=== PATIENT | male | born 1950 | race African-American/Black ===

== ENCOUNTER 2024-12-28 17:01 | Inpatient (IN) | payer OTHER, MEDICARE, BC ==
[~2024-12-28] VITALS: Ht 177.8 cm; Wt 117.8 kg
--- NOTE | 2024-12-28 18:29 | ED.PDOC ---
History of Present Illness HPI Comments Patient is a 74 y/o male with past medical history of HTN, T2DM, prostatomegaly came to the ED with the c/c of right groin pain. Patient reports that about 3 weeks ago he started to feel right groin pain above his right tesitcle which has been getting worse since then. recently he reports of pain radiating up from his groin into the suprapubic region. patient denies constipation or obstipation, nausea or vomiting. fever/chills. He does not report of any diarrhoea or blood in stools , no dysurial. Chief Complaint: Testicle Pain Time Seen by MD: 17:37 Reviewed Notes: Nurses Notes, Medications, Allergies Allergies: Coded Allergies: NO KNOWN ALLERGIES (Unverified , 12/28/24) Information Source: Patient Mode of Arrival: Ambulatory Past Medical History PAST MEDICAL HISTORY: DM, HTN Past Medical History (Other): prostatomegaly Surgical History: Denies all surgeries Family History Family History: Reviewed,noncontributory to illness Social History Smoker: Non-Smoker Alcohol: Denies ETOH Use Drugs: Denies Drug Use Lives In: Home Constitutional: denies: chills, diaphoresis, fatigue, fever, malaise, sweats, weakness, others EENTM: denies: blurred vision, double vision, ear bleeding, ear discharge, ear drainage, ear pain, ear ringing, eye pain, eye redness, hearing loss, mouth pain, mouth swelling, nasal discharge, nose bleeding, nose congestion, nose pain, photophobia, tearing, throat pain, throat swelling, voice changes, others Respiratory: denies: cough, hemoptysis, orthopnea, SOB at rest, shortness of breath, SOB with excertion, stridor, wheezing, others Cardiovascular: denies: chest pain, dizzy spells, diaphoresis, Dyspnea on exertion, edema, irregular heart beat, left arm pain, lightheadedness, palpitations, PND, syncope, others Gastrointestinal: reports: abdominal pain Genitourinary: reports: testicle pain, testicle swelling Neurological: denies: dizziness, fainting, headache, left sided numbness, left sided weakness, numbness, paresthesia, pre-existing deficit, right sided numbness, right sided weakness, seizure, speech problems, tingling, tremors, weakness, others Musculoskeletal: denies: back pain, gout, joint pain, joint swelling, muscle pain, muscle stiffness, neck pain, others Integumetry: denies: bruises, change in color, change in hair/nails, dryness, laceration, lesions, lumps, rash, wounds, others Allergic/Immunocompromised: denies: Difficulty Healing, Frequent Infections, Hives, Itching, others Hematologic/Lymphatic: denies: anemia, blood clots, easy bleeding, easy bruising, swollen glands, others Endocrine: denies: excessive hunger, excessive sweating, excessive thirst, excessive urination, flushing, intolerance to cold, intolerance to heat, unexplained weight gain, unexplained weight loss, others Psychiatric: denies: anxiety, bipolar disorder, depression, hopeless, panic disorder, schizophrenia, sleepless, suicidal, others Physical Exam General Appearance: No Apparent Distress, Normal HEENT: Normal ENT Inspection, Pharynx Normal, TMs Normal Neck: Full Range of Motion, Non-Tender, Normal, Normal Inspection Respiratory: Chest Non-Tender, Lungs Clear, No Accessory Muscle Use, No Respiratory Distress, Normal Breath Sounds Cardiovascular: No Edema, No JVD, No Murmur, No Gallop, Normal Peripheral Pulses, Regular Rate/Rhythm Breast Exam: Deferred Gastrointestinal: No Organomegaly, Non Tender, No Pulsatile Mass, Normal Bowel Sounds, Soft Genitalia: Testicle (swelling coming out of the deep inguinal ring on coughing on the righ side ) Pelvic: Deferred Rectal: Deferred Extremities: No calf tenderness, Normal capillary refill, Normal inspection, Normal range of motion, Non-tender, No pedal edema Neurologic: Alert, 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 Was a procedure done?: No Differential Dx Considerations may include: Inguinal hernia, hydrocoele, testicular swelling X-Ray, Labs, Meds, VS Vital Signs Date Time Temp Pulse Resp B/P (MAP) Pulse Ox O2 Delivery O2 Flow Rate FiO2 12/28/24 17:30 97.7 91 20 113/60 (77) 99 97.7 Lab Test 12/28/24 19:00 12/28/24 18:14 Range/Units Urine Color Light-yellow Yellow Urine Clarity Clear Clear Urine pH 6.5 5.0-9.0 Urine Specific [place] 1.013 1.001-1.035 Urine Protein Negative Negative Urine Ketones Negative Negative Urine Blood Negative Negative /uL Urine Nitrite Negative Negative Urine Bilirubin Negative Negative Urine Urobilinogen Normal Negative mg/dL Urine Leukocyte Esterase Negative Negative /uL Urine RBC 1 0 - 3 /hpf Urine Microscopic WBC 1 0-3 /HPF Urine Squamous Epithelial Cells None seen <5 /hpf Urine Bacteria None seen None Seen /hpf Urine Glucose Normal Normal mg/dL White Blood Count 5.6 4.4-10.8 10^3/uL Red Blood Count 4.37 L 4.5-5.90 10^6/uL Hemoglobin 14.0 13.5-17.5 g/dL Hematocrit 40.8 L 41.0-53.0 % Mean Corpuscular Volume 93.3 80.0-100.0 fL Mean Corpuscular Hemoglobin 32.0 28.0-32.0 pg Mean Corpuscular Hemoglobin Concent 34.3 32.0-36.0 g/dL Red Cell Distribution Width 14.8 H 11.8-14.3 % Platelet Count 275 140-450 10^3/uL Mean Platelet Volume 7.2 6.9-10.8 fL Neutrophils (%) (Auto) 53.5 37.0-80.0 % Lymphocytes (%) (Auto) 33.2 10.0-50.0 % Monocytes (%) (Auto) 10.5 0.0-12.0 % Eosinophils (%) (Auto) 2.1 0.0-7.0 % Basophils (%) (Auto) 0.7 0.0-2.0 % Neutrophils # (Auto) 3.0 1.6-8.6 10 ^3/uL Lymphocytes # (Auto) 1.8 0.4-5.4 10 ^3/uL Monocytes # (Auto) 0.6 0-1.3 10 ^3/uL Eosinophils # (Auto) 0.1 0-0.8 10 ^3/uL Basophils # (Auto) 0 0-0.2 10 ^3/uL Nucleated Red Blood Cells 0.2 % Sodium Level 137 136-145 mmol/L Potassium Level 3.8 3.5-5.1 mmol/L Chloride Level 103 98-107 mmol/L Carbon Dioxide Level 23 20-31 mmol/L Anion Gap 11 5-15 Blood Urea Nitrogen 15 9-23 mg/dL Creatinine 1.28 0.700-1.30 mg/dL Glomerular Filtration Rate Calc 59 >90 mL/min BUN/Creatinine Ratio 11.7 10.0-20.0 Serum Glucose 101 74-106 mg/dL Lactic Acid Level 2.0 0.4-2.0 mmol/L Calcium Level 9.8 8.7-10.4 mg/dL Current Medications Medications (Trade) Dose Ordered Sig/Jewels Route Start Time Stop Time Status Last Admin Ketorolac Tromethamine (Toradol Injection) 15 mg ONCE ONCE IV 12/28/24 18:15 12/28/24 18:16 DC 12/28/24 19:00 Patient is a 74/M who came to the ER with the chief complaint of right groin pain and swelling for the last 3 weeks. The pain has been worsening for the last week and he reported of severe pain when the patient stands up. On physical exam swelling was palpated at the right deep inguinal ring on coughing and abd pressure. CT abd/pelvis showed Right inguinal hernia containing a portion of the bladder measuring 5.2 x 7.2 x 8.3 cm. There is mild stranding surrounding the bladder. Correlate for incarceration / strangulation. Lactic acid level was on the higher limit of normal. Surgical consultation was placed and the patient will be admitted for further inpatient management and surgical evaluation. Time of 1ST Reevaluation: 19:49 Reevaluation 1ST: Improved Patient Education/Counseling: Diagnosis, Treatment Family Education/Counseling: No Family Present SEPSIS Sepsis Screen Date sepsis recognized/suspect: Dec 28, 2024 Time Sepsis recognized/suspect: 1730 Recent Procedure: No On Antibiotic Therapy: No Respiratory Rate >20: No Heart Rate >90: Yes Temp<36 C (96.8 F) or >38.3 C: No SBP <90 or MAP <65 mmHG: No New Acute Mental Status Change: No Is the patient on CPAP, BIPAP,: No Physician Orders Ct Ab Pel Wo Con-No Oral Or Iv (12/28/24 18:02) Heplock Iv (12/28/24 ) * Surgical Consult (12/28/24 ) PTPTT (12/28/24 19:49) Vital Signs Date Time Temp Pulse Resp B/P (MAP) Pulse Ox O2 Delivery O2 Flow Rate FiO2 12/28/24 17:30 97.7 91 20 113/60 (77) 99 97.7 Laboratory Tests Test 12/28/24 18:14 Lactic Acid Level 2.0 mmol/L (0.4-2.0) White Blood Count 5.6 10^3/uL (4.4-10.8) Medications Medications Dose Ordered Sig/Jewels Route Start Time Stop Time Status Last Admin Dose Admin Ketorolac Tromethamine 15 mg ONCE ONCE IV 12/28/24 18:15 12/28/24 18:16 DC 12/28/24 19:00 Departure 1 Departure Time of Disposition: 20:11 Impression: Primary Impression: Right inguinal hernia Additional Impression: Groin pain Disposition: 09 ADMITTED INPATIENT Condition: Stable Critical Care Note Critical Care Time?: No Stability Stability form required: No Heart Score Heart Score: Heart Score Response (Comments) Value History N/A 0 EKG N/A 0 Age N/A 0 Risk Factors N/A 0 Troponin N/A 0 Total 0 STEFAN TAVERAS RESIDENT Dec 28, 2024 18:28
[2024-12-28 18:34] LABS: Hematocrit 40.8 % (41.0-53.0); Hemoglobin 14.0 g/dL (13.5-17.5); Mean Corpuscular Hemoglobin 32.0 pg (28.0-32.0); Mean Corpuscular Volume 93.3 fL (80.0-100.0); Nucleated Red Blood Cells % 0.2 %
--- NOTE | 2024-12-28 18:46 | DVH ---
Indication: right testiculr swelling/pain, hernia Technique: CT axial images of the abdomen and pelvis are obtained without contrast. Coronal and sagit lance reformats were obtained. Radiation Dose Information: CTDI volume is 1389.32 mGy. Dose-length product is 1381.48 mGy*cm Comparison: None FINDINGS: There is limited interpretation of the abdomen and pelvis without administration of intravenous contr ast. The lung bases demonstrate no pleural effusion. Small pericardial effusion. Adrenal glands, spleen, pancreas unremarkable in shape. Liver unremarkable in shape. No CT evidence for cholelithiasis. The bilateral kidneys demonstrate no hydronephrosis / nephrolithiasis. Small hiatal hernia. Stomach partially distended. Small bowel loops are normal in caliber. Colonic diverticular disease. Moderate volume stool in the colon. Normal appendix. Abdominal aortic atherosclerotic disease. Right inguinal hernia containing a portion of the bladder m easuring 5.2 x 7.2 by 8.3 cm. There is mild stranding within the hernia. No free pelvic fluid. Small fat containing left inguinal hernia. No inguinal lymphadenopathy. Moderate bilateral sacroiliac degenerative joint disease. Moderate thoracolumbar degenerative disc di sease. IMPRESSION: Right inguinal hernia containing a portion of the bladder measuring 5.2 x 7.2 x 8.3 cm. There is mild stranding surrounding the bladder. Correlate for incarceration / strangulation. Recommend surgical consultation for further management. Small pericardial effusion. Colonic diverticular disease. Other findings as described..
[2024-12-28 18:51] LABS: Anion Gap 11 (5-15); Carbon Dioxide 23 mmol/L (20-31); Chloride 103 mmol/L (98-107); Potassium 3.8 mmol/L (3.5-5.1); Sodium 137 mmol/L (136-145)
[2024-12-28 18:52] LABS: Calcium 9.8 mg/dL (8.7-10.4)
[2024-12-28 18:57] LABS: BUN/Creatinine Ratio 11.7 (10.0-20.0); Blood Urea Nitrogen 15 mg/dL (9-23); Glucose 101 mg/dL (74-106)
[2024-12-28] MEDS: KETOROLAC TROMETH 30 MG/ML 1ML VIAL IV ONE (19:00)
[2024-12-28 19:13] LABS: Urine Protein, UAD Negative (Negative)
[2024-12-28 20:47] LABS: INR 1.01 (0.9-1.15); Partial Thromboplastin Time 35.8 SEC (24.5-34.5); Prothrombin Time 10.7 sec (9.3-11.8)
--- NOTE | 2024-12-28 23:38 | DVHHP2 ---
History of Present Illness History of Present Illness This is a 74-year-old male with past medical history of DM 2, HTN, BPH came to ER with complain of right lower quadrant and right groin pain for 3 weeks which is worsen today morning. Patient suddenly noticed severe right groin pain with swelling which is 7-8/10 intensity, localized, stabbing in nature, intermittent, aggravated on walking or movement but no relieving factor, swelling size reduced when patient lying but not completely disappear. Patient denies similar type of symptoms before. Patient denies any diarrhea, constipation, dysuria, chest pain, headache, dizziness, vertigo, hematuria or hematochezia. No recent history of fall/,/injury/MVA. Colonoscopy done 2 years ago and few polyps noted on colonoscopy which came back normal on pathology. Past Medical History: DM 2, HTN, BPH Surgical History: Nothing contributory Family History: Nothing contributory Smoker: Non-Smoker Alcohol: Denies ETOH Use Drugs: Denies Drug Use Lives In: Home, alone Allergy: No known allergy PCP: [facility] Review of Systems Constitutional: No: Fever, Chills, Sweats, Weakness, Malaise, Other Eyes: No: Pain, Vision change, Conjunctivae inflammation, Eyelid inflammation, Other, Redness ENT: No: Ear pain, Ear discharge, Nose pain, Nose discharge, Nose congestion, Mouth pain, Mouth swelling, Throat pain, Throat swelling, Other Respiratory: No: Cough, Dry, Shortness of breath, SOB with excertion, Wheezing, Hemoptysis, Pleuritic Pain, Sputum, Wheezing, Other Cardiovascular: No: Chest Pain, Palpitations, Orthopnea, Paroxysmal Noc. Dysp bhavna, Edema, Lt Headedness, Other Gastrointestinal: Other (Right lower quadrant abdominal pain and right groin pain); No: Nausea, Vomiting, Abdominal Pain, Diarrhea, Constipation, Melena, Hematochezia Genitourinary: No Dysuria, No Frequency, No Incontinence, No Hematuria, No Retention, No Other Musculoskeletal: No: other, neck pain, shoulder pain, arm pain, back pain, hand pain, leg pain, foot pain Skin: Other (Swelling noted on right groin area); No: Rash, Lesions, Jaundice, Bruising Neurological: No: Weakness, Numbness, Incoordination, Change in speech, Confusion, Seizures, Other Allergies: Coded Allergies: NO KNOWN ALLERGIES (Unverified , 12/28/24) Exam Vital Signs Vital Signs Date Time Temp Pulse Resp B/P (MAP) Pulse Ox O2 Delivery O2 Flow Rate FiO2 12/28/24 17:30 97.7 91 20 113/60 (77) 99 97.7 General Appearance: Alert, Oriented X3, Cooperative, mild distress HEENT: Atraumatic, PERRLA, EOMI Respiratory: Clear to auscultation, Normal air movement Cardiovascular: Regular rate, Normal S1, Normal S2 Abdominal: Normal bowel sounds, Soft, No tenderness, No hepatospenomegaly, Other (Swelling noted on right inguinal area) Extremities: No clubbing, No cyanosis, No edema, Normal pulses Skin: No rashes, No breakdown Neuro: Normal gait, Normal speech, Strength at 5/5 X4 ext Labs/Xrays Labs Test 12/28/24 19:00 12/28/24 18:14 Range/Units Urine Color Light-yellow Yellow Urine Clarity Clear Clear Urine pH 6.5 5.0-9.0 Urine Specific [place] 1.013 1.001-1.035 Urine Protein Negative Negative Urine Ketones Negative Negative Urine Blood Negative Negative /uL Urine Nitrite Negative Negative Urine Bilirubin Negative Negative Urine Urobilinogen Normal Negative mg/dL Urine Leukocyte Esterase Negative Negative /uL Urine RBC 1 0 - 3 /hpf Urine Microscopic WBC 1 0-3 /HPF Urine Squamous Epithelial Cells None seen <5 /hpf Urine Bacteria None seen None Seen /hpf Urine Glucose Normal Normal mg/dL White Blood Count 5.6 4.4-10.8 10^3/uL Red Blood Count 4.37 L 4.5-5.90 10^6/uL Hemoglobin 14.0 13.5-17.5 g/dL Hematocrit 40.8 L 41.0-53.0 % Mean Corpuscular Volume 93.3 80.0-100.0 fL Mean Corpuscular Hemoglobin 32.0 28.0-32.0 pg Mean Corpuscular Hemoglobin Concent 34.3 32.0-36.0 g/dL Red Cell Distribution Width 14.8 H 11.8-14.3 % Platelet Count 275 140-450 10^3/uL Mean Platelet Volume 7.2 6.9-10.8 fL Neutrophils (%) (Auto) 53.5 37.0-80.0 % Lymphocytes (%) (Auto) 33.2 10.0-50.0 % Monocytes (%) (Auto) 10.5 0.0-12.0 % Eosinophils (%) (Auto) 2.1 0.0-7.0 % Basophils (%) (Auto) 0.7 0.0-2.0 % Neutrophils # (Auto) 3.0 1.6-8.6 10 ^3/uL Lymphocytes # (Auto) 1.8 0.4-5.4 10 ^3/uL Monocytes # (Auto) 0.6 0-1.3 10 ^3/uL Eosinophils # (Auto) 0.1 0-0.8 10 ^3/uL Basophils # (Auto) 0 0-0.2 10 ^3/uL Nucleated Red Blood Cells 0.2 % Prothrombin Time 10.7 9.3-11.8 sec Prothrombin Time INR 1.01 0.9-1.15 Activated Partial Thromboplast Time 35.8 H 24.5-34.5 SEC Sodium Level 137 136-145 mmol/L Potassium Level 3.8 3.5-5.1 mmol/L Chloride Level 103 98-107 mmol/L Carbon Dioxide Level 23 20-31 mmol/L Anion Gap 11 5-15 Blood Urea Nitrogen 15 9-23 mg/dL Creatinine 1.28 0.700-1.30 mg/dL Glomerular Filtration Rate Calc 59 >90 mL/min BUN/Creatinine Ratio 11.7 10.0-20.0 Serum Glucose 101 74-106 mg/dL Lactic Acid Level 2.0 0.4-2.0 mmol/L Calcium Level 9.8 8.7-10.4 mg/dL SEPSIS Sepsis Screen Date sepsis recognized/suspect: Dec 28, 2024 Time Sepsis recognized/suspect: 1730 Recent Procedure: No On Antibiotic Therapy: No Respiratory Rate >20: No Heart Rate >90: Yes Temp<36 C (96.8 F) or >38.3 C: No SBP <90 or MAP <65 mmHG: No New Acute Mental Status Change: No Is the patient on CPAP, BIPAP,: No Physician Orders Ct Ab Pel Wo Con-No Oral Or Iv (12/28/24 18:02) Heplock Iv (12/28/24 ) * Surgical Consult (12/28/24 ) Admit (12/28/24 23:35) Nitroglycerin Sublingual (Ntrostat Subli (12/28/24 23:45) Morphine Sulfate Injection (12/28/24 23:45) Cardiac Diet-2gna,Lofat,Lochol (12/29/24 Breakfast) Vital Signs Date Time Temp Pulse Resp B/P (MAP) Pulse Ox O2 Delivery O2 Flow Rate FiO2 12/28/24 17:30 97.7 91 20 113/60 (77) 99 97.7 Laboratory Tests Test 12/28/24 18:14 Lactic Acid Level 2.0 mmol/L (0.4-2.0) White Blood Count 5.6 10^3/uL (4.4-10.8) Medications Medications Dose Ordered Sig/Jewels Route Start Time Stop Time Status Last Admin Dose Admin Ketorolac Tromethamine 15 mg ONCE ONCE IV 12/28/24 18:15 12/28/24 18:16 DC 12/28/24 19:00 15 MG Assessment/Plan Assessment/Plan # Right inguinal region pain likely strangulated hernia -Patient came with right inguinal and right lower quadrant abdominal pain -Received Zosyn ,NSS, ketorolac in ER -No leukocytosis, PT 10.7, INR 1.01, PTT 35.8 -Lactic acid 2.0 -CT abdomen and pelvis without contrast: Right inguinal hernia containing a portion of the bladder measuring 5.2 x 7.2 x 8.3 cm. There is mild stranding surrounding the bladder. Correlate for incarceration / strangulation. Recommend surgical consultation for further management. -keep patient NPO -EKG -surgery consult # Essential hypertension -HOLD Lisinopril 5 mg p.o. daily -Monitor blood pressure # TANIA due to vasomotor nephropathy -Creatinine 1.28, EGFR 59 -NSS 75 cc per hour -BMP monitor # Type 2 diabetes mellitus -Not on any medication -HbA1c ordered # Benign prostatic hyperplasia -Will resume Terazosin 2 mg 2 tablets p.o. q.h.s. Diet: npo for now GI prophylaxis: Pantoprazole 40 mg IV daily DVT prophylaxis: Patient ambulating. Goals of care discussions, more than 27 minutes spent. Full code status Case discussed with Dr. Bauman Plan discussed with: Patient, Other (Nurse) My Orders Orders - SHRUTHI REYNOSO RESIDENT Procedure Category Date Status Time Admit ADMIT 12/28/24 Transmitted 23:35 Nitroglycerin PHA 12/28/24 Transmitted Sublingual (Ntrostat 23:45 Morphine Sulfate PHA 12/28/24 Transmitted Injection 23:45 Cardiac DIET 12/29/24 Transmitted Diet-2gna,Lofat,Lochol Breakfast Date of Service: Dec 28, 2024 Billing Provider: BRIDGET BAUMAN MD Common Visit Codes: 23510-EMPLHYU INP/OBS CARE (HIGH) Secondary Visit Codes: 99964-SWVANSKI CARE PLAN 30 MINUTES SHRUTHI REYNOSO RESIDENT Dec 28, 2024 23:38
[2024-12-28] MEDS ORDERED: MORPHINE SULFATE INJ 2 MG/ml SYRG IV PRN (23:45)
[2024-12-28] MEDS ORDERED: NITROGLYCERIN 0.4 MG SL TAB SL PRN (23:45)
[2024-12-29] VITALS (10 sets, daily range): BP systolic 104–144; BP diastolic 54–80; PULSE 56–84; RESP 11–20; TEMP 96.4–98; O2SAT 94–99
[2024-12-29] MEDS: SODIUM CHLORIDE 0.9% 1,000 ML IV ONE (01:00)
[2024-12-29] MEDS: PIPERACILLIN-TAZOB 3.375GM 100 ML IV ONE (01:00)
[2024-12-29] MEDS ORDERED: ACETAMINOPHEN 325 MG TAB PO PRN (02:30)
[2024-12-29] MEDS: SODIUM CHLORIDE 0.9% 1,000 ML IV SCH (03:30)
[2024-12-29] MEDS ORDERED: PANTOPRAZOLE 40 MG TAB PO SCH (06:00)
--- NOTE | 2024-12-29 06:27 | DVH ---
CHEST RADIOGRAPH Indication: Rule out cardiopulmonary disease Technique: Single frontal view of the chest was obtained COMPARISON: None FINDINGS: Lines and Tubes: None Lungs: Clear Pleura: No effusion. No pneumothorax. Cardiomediastinal contours: Unremarkable Bones: Unremarkable IMPRESSION: 1. No acute disease.
[2024-12-29 06:35] LABS: Cholesterol 220 mg/dL (< 200); HDL Cholesterol 37 mg/dL (40-59); Triglycerides 165 mg/dL (< 150)
[2024-12-29] MEDS ORDERED: fentaNYL CITRATE 100 MCG/2 ML VL ONE (09:09)
[2024-12-29] MEDS ORDERED: PROPOFOL 10 MG/ML 20 ML IV ONE (09:10)
--- NOTE | 2024-12-29 09:20 | DVHINCON2 ---
Date of service: Dec 29, 2024 Family History: Patient reports no known family medical history. Allergies: Coded Allergies: NO KNOWN ALLERGIES (Unverified , 12/28/24) Current Medications Current Medications Medications (Trade) Dose Ordered Sig/Jewels Route PRN Reason Start Time Stop Time Status Last Admin Nitroglycerin (Ntrostat Sublingual) 0.4 mg Q5MINP PRN SL FOR CHEST PAIN 12/28/24 23:45 Morphine Sulfate 2 mg Q30M PRN IV FOR CHEST PAIN 12/28/24 23:45 Terazosin HCl (Hytrin) 4 mg HS PO 12/29/24 22:00 12/29/24 03:27 DC Acetaminophen (Tylenol Tablet) 650 mg Q4HP PRN PO MODERATE PAIN (4-6 PAIN SCALE) 12/29/24 02:30 12/29/24 03:27 DC Pantoprazole Sodium (Protonix Tablet) 40 mg DAILY@0600 PO 12/29/24 06:00 12/29/24 03:27 DC Enoxaparin Sodium (Lovenox) 40 mg DAILY SC 12/29/24 10:00 12/29/24 03:27 DC Pantoprazole Sodium (Protonix) 40 mg DAILY IV 12/29/24 10:00 Sodium Chloride 1,000 ml @ 75 mls/hr [id number] IV 12/29/24 03:30 12/29/24 05:48 Vital Signs Vital Signs Date Time Temp Pulse Resp B/P (MAP) Pulse Ox O2 Delivery O2 Flow Rate FiO2 12/29/24 05:00 97.9 56 20 104/54 (71) 99 97.9 12/29/24 03:32 Room Air* 0 21 Labs/Diagnostic Data Labs Test 12/29/24 05:48 12/28/24 19:00 12/28/24 18:14 Range/Units Hemoglobin A1c 5.3 <5.7 % A1C Triglycerides Level 165 H < 150 mg/dL Cholesterol Level 220 H < 200 mg/dL LDL Cholesterol 153 H < 100 mg/dL HDL Cholesterol 37 L 40-59 mg/dL Thyroid Stimulating Hormone (TSH) 4.60 0.55-4.78 uIU/mL Urine Color Light-yellow Yellow Urine Clarity Clear Clear Urine pH 6.5 5.0-9.0 Urine Specific [place] 1.013 1.001-1.035 Urine Protein Negative Negative Urine Ketones Negative Negative Urine Blood Negative Negative /uL Urine Nitrite Negative Negative Urine Bilirubin Negative Negative Urine Urobilinogen Normal Negative mg/dL Urine Leukocyte Esterase Negative Negative /uL Urine RBC 1 0 - 3 /hpf Urine Microscopic WBC 1 0-3 /HPF Urine Squamous Epithelial Cells None seen <5 /hpf Urine Bacteria None seen None Seen /hpf Urine Glucose Normal Normal mg/dL White Blood Count 5.6 4.4-10.8 10^3/uL Red Blood Count 4.37 L 4.5-5.90 10^6/uL Hemoglobin 14.0 13.5-17.5 g/dL Hematocrit 40.8 L 41.0-53.0 % Mean Corpuscular Volume 93.3 80.0-100.0 fL Mean Corpuscular Hemoglobin 32.0 28.0-32.0 pg Mean Corpuscular Hemoglobin Concent 34.3 32.0-36.0 g/dL Red Cell Distribution Width 14.8 H 11.8-14.3 % Platelet Count 275 140-450 10^3/uL Mean Platelet Volume 7.2 6.9-10.8 fL Neutrophils (%) (Auto) 53.5 37.0-80.0 % Lymphocytes (%) (Auto) 33.2 10.0-50.0 % Monocytes (%) (Auto) 10.5 0.0-12.0 % Eosinophils (%) (Auto) 2.1 0.0-7.0 % Basophils (%) (Auto) 0.7 0.0-2.0 % Neutrophils # (Auto) 3.0 1.6-8.6 10 ^3/uL Lymphocytes # (Auto) 1.8 0.4-5.4 10 ^3/uL Monocytes # (Auto) 0.6 0-1.3 10 ^3/uL Eosinophils # (Auto) 0.1 0-0.8 10 ^3/uL Basophils # (Auto) 0 0-0.2 10 ^3/uL Nucleated Red Blood Cells 0.2 % Prothrombin Time 10.7 9.3-11.8 sec Prothrombin Time INR 1.01 0.9-1.15 Activated Partial Thromboplast Time 35.8 H 24.5-34.5 SEC Sodium Level 137 136-145 mmol/L Potassium Level 3.8 3.5-5.1 mmol/L Chloride Level 103 98-107 mmol/L Carbon Dioxide Level 23 20-31 mmol/L Anion Gap 11 5-15 Blood Urea Nitrogen 15 9-23 mg/dL Creatinine 1.28 0.700-1.30 mg/dL Glomerular Filtration Rate Calc 59 >90 mL/min BUN/Creatinine Ratio 11.7 10.0-20.0 Serum Glucose 101 74-106 mg/dL Lactic Acid Level 2.0 0.4-2.0 mmol/L Calcium Level 9.8 8.7-10.4 mg/dL Assessment 74 year old male with transiently incarcerated right inguinal hernia, he is in good health, once had a "tear in the stomach from too much aspirin" which was treated by endoscopy, no abdominal or chest operations. non smoker, non drinker, no use of ilicit drugs, abdomen obese, non tender, ct scan shows right inguinal hernia containing bladder. the inguinal hernia is now reducible but tender to palpation. operation to repair hernia, risks and complications explained in detail Plan discussed with: Patient TUAN LARA MD Dec 29, 2024 09:20
[2024-12-29] MEDS ORDERED: SUCCINYLCHOLINE CHLORIDE 20 MG/ML 10ML VIAL IV ONE (09:35)
[2024-12-29] MEDS ORDERED: ceFAZolin 2 GM/D5W50ml 50 ML IV ONE (09:38)
[2024-12-29] MEDS ORDERED: ENOXAPARIN SOD 40 MG/0.4 ML SYRINGE SC SCH (10:00)
[2024-12-29] MEDS: PANTOPRAZOLE 40 MG/10 ML VIAL INJ IV SCH (10:00)
[2024-12-29] MEDS ORDERED: HYDROmorphone HCL 2 MG/ML VL/or syr ONE (10:07)
[2024-12-29] MEDS ORDERED: ONDANSETRON HCL 4 MG/2 ML VIAL ONE (10:13)
[2024-12-29] MEDS: LIDOCAINE W/ EPINEPHRINE 1% 20ML VIAL ONE (10:23)
[2024-12-29] MEDS: BUPIVACAINE 0.5% P/F INJ 10 ML VIAL ONE (10:23)
--- NOTE | 2024-12-29 10:48 | DVHPNRES ---
Progress Note Date Seen: Dec 29, 2024 Resident Creating Document: SHERITA KEITH Has the PT tested + for MRSA If YES, has PT been informed?: No Medical Necessity Reason Pt with a Central, PICC or Fol: No Subjective Review of Systems This is a 74-year-old male with past medical history of DM 2, HTN, BPH came to ER with complain of right lower quadrant and right groin pain for 3 weeks which is worsen today morning. Patient suddenly noticed severe right groin pain with swelling which is 8/10 intensity, localized, stabbing in nature, intermittent, aggravated on walking or movement but no relieving factor, swelling size reduced when patient lying but not completely disappear. The pain started from right testicle radiating to lower abdomen. Patient denies similar type of symptoms before. Patient denies any diarrhea, constipation, dysuria, chest pain, headache, dizziness, vertigo, hematuria or hematochezia. No recent history of fall/injury/MVA. Colonoscopy done 2 years ago and few polyps noted on colonoscopy which came back normal on pathology. Patient underwent surgery today and is currently recovering well without complications. Patient reports: No new complaints Objective vital signs Vital Sign Date Time Temp Pulse Resp B/P (MAP) Pulse Ox O2 Delivery O2 Flow Rate FiO2 12/29/24 09:00 98.0 62 17 144/57 (86) 99 98.0 12/29/24 03:32 Room Air* 0 21 Total Intake and Output 12/28/24 12/28/24 12/29/24 15:00 23:00 07:00 Intake Total 0 ml Balance 0 ml medications Current Medications Medications Dose Ordered Sig/Jewels Route Start Time Stop Time Status Last Admin Dose Admin Nitroglycerin 0.4 mg Q5MINP PRN SL 12/28/24 23:45 Morphine Sulfate 2 mg Q30M PRN IV 12/28/24 23:45 Pantoprazole Sodium 40 mg DAILY IV 12/29/24 10:00 Sodium Chloride 1,000 ml @ 75 mls/hr [id number] IV 12/29/24 03:30 12/29/24 05:48 75 MLS/HR Examination General Appearance: Alert, Oriented X3, Cooperative, mild distress HEENT: Atraumatic, PERRLA, EOMI Respiratory: Clear to auscultation, Normal air movement Cardiovascular: Regular rate, Normal S1, Normal S2 Abdominal: Normal bowel sounds, Soft, No tenderness, No hepatospenomegaly, Other (Swelling noted on right inguinal area) Extremities: No clubbing, No cyanosis, No edema, Normal pulses Skin: No rashes, No breakdown Neuro: Normal gait, Normal speech, Strength at 5/5 X4 ext laboratory and microbiology Laboratory Tests 12/28/24 18:14 Test 12/28/24 18:14 Range/Units Serum Glucose 101 74-106 mg/dL Problem List/Assessment/Plan Problem List/Assessment/Plan # Right inguinal region pain likely strangulated hernia -Patient presented with right inguinal and right lower quadrant abdominal pain -CT abdomen and pelvis without contrast: Right inguinal hernia containing a portion of the bladder measuring 5.2 x 7.2 x 8.3 cm. There is mild stranding surrounding the bladder. Correlate for incarceration / strangulation. Recommend surgical consultation for further management. Small pericardial effusion. Colonic diverticular disease. -Received Zosyn ,NSS, ketorolac in ER -No leukocytosis, PT 10.7, INR 1.01, PTT 35.8 -Lactic acid 2.0 -keep patient NPO -EKG -Surgery consult -Surgery performed without complications -CXR: No acute disease # Essential hypertension -HOLD Lisinopril 5 mg p.o. daily -Monitor blood pressure # TANIA due to vasomotor nephropathy -Creatinine 1.28, EGFR 59 -NSS 75 cc per hour -BMP monitor # Type 2 diabetes mellitus -Not on any medication -HbA1c ordered # Benign prostatic hyperplasia -Will resume Terazosin 2 mg 2 tablets p.o. q.h.s. Diet: npo for now GI prophylaxis: Pantoprazole 40 mg IV daily DVT prophylaxis: Patient ambulating. Goals of care discussions, more than 27 minutes spent. Full code status Case discussed with Dr. Argueta Plan discussed with: Patient, Other (Nurse) Plan discussed with: Patient, Other (RN) Sepsis reassessment post fluid Respiratory Effort: Non-Labored Respiratory Pattern: Regular Date of Service: Dec 29, 2024 Billing Provider: CARLY ARGUETA MD Common Visit Codes: [id number] INP/OBS CARE(HIGH) SHERTIA KEITH RESIDENT Dec 29, 2024 10:48 CARLY ARGUETA MD Jan 03, 2025 13:40
[2024-12-29] MEDS ORDERED: SUGAMMADEX 200mg/2ml Vial (100MG/ML) IV ONE (11:01)
[2024-12-29] MEDS: D5W/SOD CHL 0.45%/KCL 20MEQ 1,000 ML IV SCH (11:30)
[2024-12-29] MEDS ORDERED: ONDANSETRON HCL 4 MG/2 ML VIAL IV ONE (11:30)
[2024-12-29] MEDS ORDERED: ACETAMINOPHEN IV 1000 MG/100ML (10MG/ML) IV PRN (11:30)
[2024-12-29] MEDS ORDERED: HYDROmorphone HCL 2 MG/ML VL/or syr IV PRN (11:30)
[2024-12-29] MEDS ORDERED: ROCURONIUM 10MG/ML 10ML VIAL IV ONE (12:10)
--- NOTE | 2024-12-29 12:11 | DVHOP ---
PREOPERATIVE DIAGNOSIS: Intermittent incarceration of right inguinal hernia. POSTOPERATIVE DIAGNOSIS: Intermittent incarceration of right inguinal hernia. SURGEON: Salomon Ibrahim MD ANESTHESIA: General endotracheal, Dr. Craig. PROCEDURE: Repair of incarcerated right inguinal hernia. PREOPERATIVE INDICATIONS: The patient with excruciating right lower quadrant pain yesterday, had a CT scan showing an incarcerated right inguinal hernia containing portion of the urinary bladder. This morning, the patient's pain has resolved and the hernia is reducible; however, it is exquisitely tender. DESCRIPTION OF PROCEDURE: The patient was placed under general endotracheal anesthesia. Abdomen and groin were prepped and draped and the incision made over the visible palpable bulge. The incision was deepened with electrocautery through adipose tissue and Mima's fascia down onto the fibers of the external oblique aponeurosis. The patient's cord structures were markedly infiltrated with fat. The cord structures were encircled with a Wilfredo drain. The ilioinguinal nerve was identified and protected. The patient's external ring was then searched for evidence of the indirect hernia sac which was encountered. The hernia sac was opened and digitally explored. It contained portion of the urinary bladder which was reduced into the pelvis. The sac of the hernia was then twisted on itself, doubly ligated, and amputated, the amputated portion submitted for histopathologic examination. At this point, the floor of the hernia was inspected. There was marked redundancy of tissues and the internal ring was occupied by adipose tissue which was reduced. Baby [place] instrument was inserted into the external ring and the floor of the hernia was repaired using nonabsorbable sutures through the conjoint tendon and reflecting part of the Poupart's ligament. Subsequently, wound was irrigated, irrigant was aspirated. Hemostasis meticulously accomplished and found to be complete. At the termination of procedure, there was no evidence of bleeding. The external ring was reconstructed to accommodate the cord and a tip of examining finger, thus preventing constriction of the testicular vessels. Subcutaneous tissues and skin were approximated using Monocryl sutures, Dermabond glue, and Steri-Strips. The patient remained stable throughout the procedure, left the operating room following an accurate needle and sponge count. There were no family members present in the waiting room. MD SHAILA Lujan/ANUJ/GEORGE TID: [id number] RECEIPT: [id number]
[2024-12-29] MEDS: ceFAZolin 2 GM/D5W50ml 50 ML IV SCH (15:15)
[2024-12-29] MEDS: ACETAMINOPHEN/CODEINE#3 (300/30mg) TAB PO PRN (18:12)
[2024-12-29] MEDS ORDERED: TERAZOSIN HCL 1 MG CAP PO SCH (22:00)
[2024-12-30] VITALS (7 sets, daily range): BP systolic 97–144; BP diastolic 59–85; PULSE 64–73; RESP 17–18; TEMP 97.2–99.1; O2SAT 96–100
[2024-12-30] MEDS: HYDROmorphone HCL 2 MG/ML VL/or syr IV PRN (01:15)
[2024-12-30 06:31] LABS: Hematocrit 39.9 % (41.0-53.0); Hemoglobin 13.3 g/dL (13.5-17.5); Mean Corpuscular Hemoglobin 31.8 pg (28.0-32.0); Mean Corpuscular Volume 95.4 fL (80.0-100.0); Nucleated Red Blood Cells % 0.0 %
[2024-12-30 06:34] LABS: Chloride 107 mmol/L (98-107); Potassium 3.8 mmol/L (3.5-5.1); Sodium 139 mmol/L (136-145)
[2024-12-30 06:35] LABS: Anion Gap 6 (5-15); Carbon Dioxide 26 mmol/L (20-31)
[2024-12-30 06:38] LABS: Calcium 8.3 mg/dL (8.7-10.4)
[2024-12-30 06:40] LABS: BUN/Creatinine Ratio 6.5 (10.0-20.0)
[2024-12-30 06:41] LABS: Blood Urea Nitrogen 7 mg/dL (9-23); Glucose 106 mg/dL (74-106)
--- NOTE | 2024-12-30 06:58 | DVHPNRES ---
Progress Note Date Seen: Dec 30, 2024 Resident Creating Document: SHERITA KEITH RESIDENT Has the PT tested + for MRSA If YES, has PT been informed?: No Medical Necessity Reason Pt with a Central, PICC or Fol: No Subjective Review of Systems This is a 74-year-old male with past medical history of DM 2, HTN, BPH came to ER with complain of right lower quadrant and right groin pain for 3 weeks. Patient suddenly noticed severe right groin pain with swelling which is 8/10 intensity, localized, stabbing in nature, intermittent, aggravated on walking or movement but no relieving factor, swelling size reduced when patient lying but not completely disappear. The pain started from right testicle radiating to lower abdomen. Patient denies similar type of symptoms before. Patient denies any diarrhea, constipation, dysuria, chest pain, headache, dizziness, vertigo, hematuria or hematochezia. No recent history of fall/injury/MVA. Colonoscopy done 2 years ago and few polyps noted on colonoscopy which came back normal on pathology. Patient has right groin incision wound with s/p hernia repair, good appetite, no Gi symptoms. Objective vital signs Vital Sign Date Time Temp Pulse Resp B/P (MAP) Pulse Ox O2 Delivery O2 Flow Rate FiO2 12/30/24 05:00 97.7 69 18 97/59 (72) 100 97.7 12/29/24 20:00 Room Air* 0 21 Total Intake and Output 12/29/24 12/29/24 12/30/24 15:00 23:00 07:00 Intake Total 50 ml 175 ml 550 ml Output Total 600 ml Balance 50 ml 175 ml -50 ml medications Current Medications Medications Dose Ordered Sig/Jewels Route Start Time Stop Time Status Last Admin Dose Admin Pantoprazole Sodium 40 mg DAILY IV 12/29/24 10:00 Sodium Chloride 1,000 ml @ 75 mls/hr [id number] IV 12/29/24 03:30 12/30/24 06:32 75 MLS/HR Potassium Chloride/Dextrose/ Sod Cl 1,000 ml @ 75 mls/hr [id number] IV 12/29/24 11:30 12/30/24 01:10 75 MLS/HR Cefazolin Sodium/ Dextrose 50 ml @ 50 mls/hr Q8HR IV 12/29/24 14:00 7/17/25 22:06 50 MLS/HR Hydromorphone HCl 1 mg Q4HPRN PRN IV 12/29/24 11:30 12/30/24 01:15 1 MG Acetaminophen/ Codeine Phosphate 1 tab Q4HP PRN PO 12/29/24 11:30 12/29/24 18:12 1 TAB Examination General Appearance: Alert, Oriented X3, Cooperative, mild distress HEENT: Atraumatic, PERRLA, EOMI Respiratory: Clear to auscultation, Normal air movement Cardiovascular: Regular rate, Normal S1, Normal S2 Abdominal: Normal bowel sounds, Soft, No tenderness, No hepatospenomegaly, Other (Swelling noted on right inguinal area) Extremities: No clubbing, No cyanosis, No edema, Normal pulses Skin: No rashes, No breakdown Neuro: Normal gait, Normal speech, Strength at 5/5 X4 ext laboratory and microbiology Laboratory Tests 12/30/24 05:17 Test 12/30/24 05:17 Range/Units Serum Glucose Pending Problem List/Assessment/Plan Problem List/Assessment/Plan # Right inguinal region pain likely strangulated hernia -Patient presented with right inguinal and right lower quadrant abdominal pain -CT abdomen and pelvis without contrast: Right inguinal hernia containing a portion of the bladder measuring 5.2 x 7.2 x 8.3 cm. There is mild stranding surrounding the bladder. Correlate for incarceration / strangulation. Recommend surgical consultation for further management. Small pericardial effusion. Colonic diverticular disease. -Received Zosyn ,NSS, ketorolac in ER -No leukocytosis, PT 10.7, INR 1.01, PTT 35.8 -Lactic acid 2.0 -keep patient NPO -EKG -Surgery consult -Surgery performed without complications -CXR: No acute disease # Essential hypertension -HOLD Lisinopril 5 mg p.o. daily -Monitor blood pressure # TANIA due to vasomotor nephropathy -Creatinine 1.28, EGFR 59 -NSS 75 cc per hour -BMP monitor # Type 2 diabetes mellitus -Not on any medication -HbA1c ordered # Benign prostatic hyperplasia -Will resume Terazosin 2 mg 2 tablets p.o. q.h.s. Diet: npo for now GI prophylaxis: Pantoprazole 40 mg IV daily DVT prophylaxis: Patient ambulating. Goals of care discussions, more than 27 minutes spent. Full code status Case discussed with Dr. Argueta Plan discussed with: Patient, Other (Nurse) Plan discussed with: Patient, Other (RN) My Orders My Orders Orders - SHERITA KEITH Procedure Category Date Status Time Complete Blood Count LAB 12/30/24 In Process 04:00 Basic Metabolic Panel LAB 12/30/24 In Process 04:00 Sepsis reassessment post fluid Respiratory Effort: Non-Labored Respiratory Pattern: Regular Date of Service: Dec 30, 2024 Billing Provider: CARLY ARGUETA MD Common Visit Codes: [id number] INP/OBS CARE(HIGH) SHERITA KEITH Dec 30, 2024 06:58 CARLY ARGUETA MD Jan 03, 2025 13:41
[2024-12-30] MEDS: ONDANSETRON HCL 4 MG/2 ML VIAL IV PRN (07:17)
--- NOTE | 2024-12-30 12:00 | ECG ---
[facility] Test Date: 2024-12-29 Test Time: 09:42:59 Pat Name: HOWIE QURESHI Department: Room: 0223 A Gender: M Specimen Transporter: GREG : 1950 Requested By: SHRUTHI REYNOSO Order Number: [id number] Reading MD: Allan Andrew Measurements Intervals [place] Rate: 59 P: 7 W[place]: 236 QRS: 111 QRSD: 90 T: 88 QT: 402 QTc: 397 Interpretive Statements Sinus bradycardia with 1st degree AV block Right axis deviation Electronically Signed On 01-02-2025 21:30:55 PDT by Allan Andrew Please click the below link to view image of tracing.
--- NOTE | 2024-12-30 12:43 | DVHPN2 ---
Progress Note Date Seen: Dec 30, 2024 Has the PT tested + for MRSA If YES, has PT been informed?: No Medical Necessity Reason Pt with a Central, PICC or Fol: No Objective vital signs Vital Sign Date Time Temp Pulse Resp B/P (MAP) Pulse Ox O2 Delivery O2 Flow Rate FiO2 12/30/24 09:00 97.7 65 18 113/61 (78) 98 97.7 12/29/24 20:00 Room Air* 0 21 Total Intake and Output 12/29/24 12/29/24 12/30/24 15:00 23:00 07:00 Intake Total 50 ml 175 ml 550 ml Output Total 600 ml Balance 50 ml 175 ml -50 ml medications Current Medications Medications Dose Ordered Sig/Jewels Route Start Time Stop Time Status Last Admin Dose Admin Pantoprazole Sodium 40 mg DAILY IV 12/29/24 10:00 12/30/24 09:57 40 MG Sodium Chloride 1,000 ml @ 75 mls/hr [id number] IV 12/29/24 03:30 12/30/24 06:32 75 MLS/HR Potassium Chloride/Dextrose/ Sod Cl 1,000 ml @ 75 mls/hr [id number] IV 12/29/24 11:30 12/30/24 01:10 75 MLS/HR Cefazolin Sodium/ Dextrose 50 ml @ 50 mls/hr Q8HR IV 12/29/24 14:00 12/30/24 06:00 50 MLS/HR Hydromorphone HCl 1 mg Q4HPRN PRN IV 12/29/24 11:30 12/30/24 01:15 1 MG Acetaminophen/ Codeine Phosphate 1 tab Q4HP PRN PO 12/29/24 11:30 12/30/24 06:49 1 TAB Ondansetron HCl 4 mg Q4HPRN PRN IV 12/30/24 07:00 12/30/24 07:17 4 MG laboratory and microbiology Laboratory Tests 12/30/24 05:17 Test 12/30/24 05:17 Range/Units Serum Glucose 106 74-106 mg/dL Problem List/Assessment/Plan Problem List/Assessment/Plan 12/30/24c/o discomfort at operation site, wound is clean and well approximated, no swelling, no redness, no drainage, no scrotal swelling. abdomen is non tender and non distended, patient needs to ambulate. diet as tolerated Plan discussed with: Patient Sepsis reassessment post fluid Respiratory Effort: Non-Labored Respiratory Pattern: Regular TUAN LARA MD Dec 30, 2024 12:43
[2024-12-31 01:00] VITALS: BP 104/67; PULSE 66; RESP 18; TEMP 98.6; O2SAT 99
[2024-12-31 05:00] VITALS: BP 127/79; PULSE 67; RESP 17; TEMP 98.4; O2SAT 100
[2024-12-31 09:00] VITALS: BP 127/76; PULSE 64; RESP 17; TEMP 96.7; O2SAT 99
--- NOTE | 2024-12-31 10:15 | DVHPN2 ---
Progress Note - Dictate Date Seen: Dec 31, 2024 Has the PT tested + for MRSA If YES, has PT been informed?: No Medical Necessity Reason Pt with a Central, PICC or Fol: No Subjective Covering for Dr. Ibrahim E: no major events o/n. no complaints. leona po well. vital signs Vital Sign Date Time Temp Pulse Resp B/P (MAP) Pulse Ox O2 Delivery O2 Flow Rate FiO2 12/31/24 05:00 98.4 67 17 127/79 (95) 100 98.4 12/30/24 20:00 Room Air* 0 21 Total Intake and Output 12/30/24 12/30/24 12/31/24 15:00 23:00 07:00 Intake Total 50 ml 650 ml 450 ml Output Total 700 ml Balance 50 ml 650 ml -250 ml medications Current Medications Medications Dose Ordered Sig/Jewels Route Start Time Stop Time Status Last Admin Dose Admin Pantoprazole Sodium 40 mg DAILY IV 12/29/24 10:00 12/31/24 09:16 40 MG Sodium Chloride 1,000 ml @ 75 mls/hr [id number] IV 12/29/24 03:30 12/30/24 19:30 75 MLS/HR Potassium Chloride/Dextrose/ Sod Cl 1,000 ml @ 75 mls/hr [id number] IV 12/29/24 11:30 12/30/24 21:03 75 MLS/HR Cefazolin Sodium/ Dextrose 50 ml @ 50 mls/hr Q8HR IV 12/29/24 14:00 12/31/24 06:34 50 MLS/HR Hydromorphone HCl 1 mg Q4HPRN PRN IV 12/29/24 11:30 12/30/24 01:15 1 MG Acetaminophen/ Codeine Phosphate 1 tab Q4HP PRN PO 12/29/24 11:30 12/30/24 21:08 1 TAB Ondansetron HCl 4 mg Q4HPRN PRN IV 12/30/24 07:00 12/30/24 07:17 4 MG objective GEN: NAD RT INGUIINAL: surgical dressings clean and dry. laboratory and microbiology Laboratory Tests 12/30/24 05:17 Test 12/30/24 05:17 Range/Units Serum Glucose 106 74-106 mg/dL Assessment/Plan A: 1. s/p RIH repair POD #2 doing well. P: 1. ok for DC home from surgery POV. 2. f/u with Dr. Ibrahim's clinic in 1-2 weeks. Dietary Evaluation Review Comments: CCHO-60 diet Et management upon D/C Expected Outcomes/Goals: Gradual wt loss, controlled DM Plan discussed with: Patient Respiratory Effort: Non-Labored Respiratory Pattern: Regular RICARDO BAUMAN MD Dec 31, 2024 10:15
--- NOTE | 2024-12-31 10:32 | DVHDSRES ---
Discharge Summary Date of Admission Resident Creating Document: SHERITA KEITH RESIDENT Dec 28, 2024 at 23:35 Date of Discharge: Dec 31, 2024 Admitting Diagnosis Right inguinal hernia Labs/Diagnostic Data: Laboratory Results Test 12/30/24 05:17 12/29/24 05:48 12/28/24 19:00 12/28/24 18:14 White Blood Count 5.7 10^3/uL (4.4-10.8) Red Blood Count 4.18 10^6/uL (4.5-5.90) Hemoglobin 13.3 g/dL (13.5-17.5) Hematocrit 39.9 % (41.0-53.0) Mean Corpuscular Volume 95.4 fL (80.0-100.0) Mean Corpuscular Hemoglobin 31.8 pg (28.0-32.0) Mean Corpuscular Hemoglobin Concent 33.3 g/dL (32.0-36.0) Red Cell Distribution Width 15.4 % (11.8-14.3) Platelet Count 227 10^3/uL (140-450) Mean Platelet Volume 7.0 fL (6.9-10.8) Neutrophils (%) (Auto) 63.2 % (37.0-80.0) Lymphocytes (%) (Auto) 24.9 % (10.0-50.0) Monocytes (%) (Auto) 8.8 % (0.0-12.0) Eosinophils (%) (Auto) 2.8 % (0.0-7.0) Basophils (%) (Auto) 0.3 % (0.0-2.0) Neutrophils # (Auto) 3.6 10 ^3/uL (1.6-8.6) Lymphocytes # (Auto) 1.4 10 ^3/uL (0.4-5.4) Monocytes # (Auto) 0.5 10 ^3/uL (0-1.3) Eosinophils # (Auto) 0.2 10 ^3/uL (0-0.8) Basophils # (Auto) 0 10 ^3/uL (0-0.2) Nucleated Red Blood Cells 0.0 % Sodium Level 139 mmol/L (136-145) Potassium Level 3.8 mmol/L (3.5-5.1) Chloride Level 107 mmol/L (98-107) Carbon Dioxide Level 26 mmol/L (20-31) Anion Gap 6 (5-15) Blood Urea Nitrogen 7 mg/dL (9-23) Creatinine 1.07 mg/dL (0.700-1.30) Glomerular Filtration Rate Calc 73 mL/min (>90) BUN/Creatinine Ratio 6.5 (10.0-20.0) Serum Glucose 106 mg/dL (74-106) Calcium Level 8.3 mg/dL (8.7-10.4) Hemoglobin A1c 5.3 % A1C (<5.7) Triglycerides Level 165 mg/dL (< 150) Cholesterol Level 220 mg/dL (< 200) LDL Cholesterol 153 mg/dL (< 100) HDL Cholesterol 37 mg/dL (40-59) Thyroid Stimulating Hormone (TSH) 4.60 uIU/mL (0.55-4.78) Urine Color Light-yellow (Yellow) Urine Clarity Clear (Clear) Urine pH 6.5 (5.0-9.0) Urine Specific [place] 1.013 (1.001-1.035) Urine Protein Negative (Negative) Urine Ketones Negative (Negative) Urine Blood Negative /uL (Negative) Urine Nitrite Negative (Negative) Urine Bilirubin Negative (Negative) Urine Urobilinogen Normal mg/dL (Negative) Urine Leukocyte Esterase Negative /uL (Negative) Urine RBC 1 /hpf (0 - 3) Urine Microscopic WBC 1 /HPF (0-3) Urine Squamous Epithelial Cells None seen /hpf (<5) Urine Bacteria None seen /hpf (None Seen) Urine Glucose Normal mg/dL (Normal) Prothrombin Time 10.7 sec (9.3-11.8) Prothrombin Time INR 1.01 (0.9-1.15) Activated Partial Thromboplast Time 35.8 SEC (24.5-34.5) Lactic Acid Level 2.0 mmol/L (0.4-2.0) Other Laboratory Tests 12/30/24 05:17 Brief Hx & Hospital Course: This is a 74-year-old male with past medical history of DM 2, HTN, BPH came to ER with complain of right lower quadrant and right groin pain for 3 weeks. Patient suddenly noticed severe right groin pain with swelling which is 8/10 intensity, localized, stabbing in nature, intermittent, aggravated on walking or movement but no relieving factor, swelling size reduced when patient lying but not completely disappear. The pain started from right testicle radiating to lower abdomen. Patient denies similar type of symptoms before. Patient denies any diarrhea, constipation, dysuria, chest pain, headache, dizziness, vertigo, hematuria or hematochezia. No recent history of fall/injury/MVA. Colonoscopy done 2 years ago and few polyps noted on colonoscopy which came back normal on pathology. Patient has right groin incision wound with s/p hernia repair, good appetite, no Gi symptoms. s/p right hernia repair, surgical dressings clean and dry. Patient has been advised to follow up with Dr. Ibrahim within 1-2 weeks for wound evaluation and continued monitoring. Patient was also advised to avoid lifting heavy objects or engaging in strenuous activity for at least one month to prevent recurrence and complications. Patient has been evaluated and is cleared for discharge home. Operations or Procedures Patient: HOIWE QURESHI Acct: [id number] : 1950 Loc: [facility] Age/Sex: 74/M Room: [facility] / Bed: A Attending Phy: SHERITA KEITH RESIDENT PREOPERATIVE DIAGNOSIS: Intermittent incarceration of right inguinal hernia. POSTOPERATIVE DIAGNOSIS: Intermittent incarceration of right inguinal hernia. SURGEON: Tuan Ibrahim MD ANESTHESIA: General endotracheal, Dr. Craig. PROCEDURE: Repair of incarcerated right inguinal hernia. PREOPERATIVE INDICATIONS: The patient with excruciating right lower quadrant pain yesterday, had a CT scan showing an incarcerated right inguinal hernia containing portion of the urinary bladder. This morning, the patient's pain has resolved and the hernia is reducible; however, it is exquisitely tender. DESCRIPTION OF PROCEDURE: The patient was placed under general endotracheal anesthesia. Abdomen and groin were prepped and draped and the incision made over the visible palpable bulge. The incision was deepened with electrocautery through adipose tissue and Mima's fascia down onto the fibers of the external oblique aponeurosis. The patient's cord structures were markedly infiltrated with fat. The cord structures were encircled with a Wilfredo drain. The ilioinguinal nerve was identified and protected. The patient's external ring was then searched for evidence of the indirect hernia sac which was encountered. The hernia sac was opened and digitally explored. It contained portion of the urinary bladder which was reduced into the pelvis. The sac of the hernia was then twisted on itself, doubly ligated, and amputated, the amputated portion submitted for histopathologic examination. At this point, the floor of the hernia was inspected. There was marked redundancy of tissues and the internal ring was occupied by adipose tissue which was reduced. Baby [place] instrument was inserted into the external ring and the floor of the hernia was repaired using nonabsorbable sutures through the conjoint tendon and reflecting part of the Poupart's ligament. Subsequently, wound was irrigated, irrigant was aspirated. Hemostasis meticulously accomplished and found to be complete. At the termination of procedure, there was no evidence of bleeding. The external ring was reconstructed to accommodate the cord and a tip of examining finger, thus preventing constriction of the testicular vessels. Subcutaneous tissues and skin were approximated using Monocryl sutures, Dermabond glue, and Steri-Strips. The patient remained stable throughout the procedure, left the operating room following an accurate needle and sponge count. There were no family members present in the waiting room. MD SHAILA Lujan/ANUJ/GEORGE TID: [id number] RECEIPT: [id number] DICTATED BY:TUAN IBRAHIM MD DICTATED DATE/TIME:12/29/24 0927 ELECTRONICALLY SIGNED BY:TUAN IBRAHIM MD 12/30/24 1138 ELECTRONICALLY CO-SIGNED BY: Condition at Discharge: Stable Final Diagnosis/Problems List # Right inguinal region pain likely strangulated hernia # Essential hypertension # TANIA due to vasomotor nephropathy # Type 2 diabetes mellitus # Benign prostatic hyperplasia Discharge Disposition: Home (RN) SNF Discharge Will this Physician continue t: No Discharge Instruct/Medications Diet: Regular Activity: No Restrictions, As Tolerated Follow Up/Referral: Follow up with Dr. Ibrahim's clinic in 1-2 weeks. Medications: Continue home medications No Active Prescriptions or Reported Meds Discharge Statement: "Patient was advised to return to the ER or call 911 if any headaches, dizziness, shortness of breath, chest pain, abdominal pain, bleeding, fevers, or worsening of medical condition. Patient was counseled about treatment plan, medications, possible side effects, patientverbalized understanding. All questions were answered to the best of my ability. This discharge took greater then 30 minutes in planning, reviewing documentation, counseling the patient, and discussing with other team members." ASSESSMENT ASSESSMENT Assessment Date of Service: Dec 31, 2024 Billing Provider: CARLY ARGUETA MD Common Visit Codes: [id number] DISCH DAY >30min SHERITA KEITH RESIDENT Dec 31, 2024 10:32 CARLY ARGUETA MD Jan 03, 2025 13:42
== END 2024-12-31 12:25 | disposition home or self-care (01) | DRG 350 ==
LOC: ER 17:01 → OVERFLOW 23:35 → EAST 12-29 02:22 → CENTRAL 12-29 14:04
PROVIDERS: ADMIT Student in an Organized Health Care Education/Training Program; ATTEND Student in an Organized Health Care Education/Training Program
PROC: 0YQ50ZZ Repair Right Inguinal Region, Open Approach (ICD-10-PCS; principal; 2024-12-29 09:55)
DX: K40.30 Unilateral inguinal hernia, with obstruction, without gangrene, not specified as recurrent (principal); N17.0 Acute kidney failure with tubular necrosis; E11.9 Type 2 diabetes mellitus without complications; I10 Essential (primary) hypertension; N40.0 Benign prostatic hyperplasia without lower urinary tract symptoms; N50.89 Other specified disorders of the male genital organs; Z79.899 Other long term (current) drug therapy
CPT/HCPCS: 36415; 71045; 74176; 80048; 80061; 81001; 83036; 83605; 84443; 85025; 85610; 85730; 88302; 93005; 96374; G0378; J0131; J0330; J1885; J2405; J2470; J2543; J2704; J3490